=== PATIENT | male | born 1995 | race African-American/Black ===

== ENCOUNTER → 2017-11-17 | Emergency (ER) | payer SELFPAY ==
[~2017-11-17] MED LIST: Acetaminophen 325 MG TAB ONE; Lidocaine 1% w/Epinephrine 1:100K 20 ML VIAL ONE; hydrOXYzine Pamoate 25 mg Capsule ONE
[2017-11-17 22:11] LABS: Hemoglobin 14.3 g/dL (14.0-18.0); Mean Corpuscular HGB CONC 34.5 g/dL (32.0-36.0); Mean Corpuscular Hemoglobin 31.9 pg (27.0-31.0); Mean Corpuscular Volume 92.5 fL (78.0-98.0); Mean Platelet Volume 7.9 fL (7.4-10.4); Platelet Count 152 thou/uL (130-400); RBC Distribution Width 11.8 % (11.5-14.5); Red Blood Cell (RBC) Count 4.47 mill/uL (4.70-6.10); White Blood Cell (WBC) Count 5.9 thou/uL (4.8-10.8)
[2017-11-17 22:26] LABS: Eosinophils 2 % (0-10); Lymphocytes 60 % (21-51); MDiff Complete? YES; Monocytes 6 % (0-10); Neutrophil 29 % (42-75); Reactive Lymphocytes 3 % (0-10)
[2017-11-17 22:33] LABS: ALT (SGPT) 11 U/L (8-55); AST (SGOT) 19 U/L (5-34); Acetaminophen Less than 6.0 mcg/mL (10.0-30.0); Albumin 3.9 g/dL (3.5-5.0); Alcohol 40 mg/dL (Less than 10); Alkaline Phosphatase 47 U/L (40-150); Anion Gap 12 mmol/L (10-20); BUN (Urea Nitrogen) 13 mg/dL (8.9-20.6); Bilirubin, Total 0.3 mg/dL (0.2-1.2); Calc. Creatinine Clearance 0 mL/min (70-130); Carbon Dioxide 23 mmol/L (22-29); Chloride 105 mmol/L (98-107); Estimated GFR-MDRD Greater than 90; Globulin 2.5 g/dL (2.4-3.5); Glucose 90 mg/dL (70-105); Potassium 3.7 mmol/L (3.5-5.1); Protein, Total 6.4 g/dL (6.0-8.3); Salicylate Less than 8.0 mg/dL (15.0-30.0); Sodium 136 mmol/L (136-145)
--- NOTE | 2017-11-17 22:33 | RAD ---
RADIOGRAPH RIGHT HAND THREE VIEWS: HISTORY: A 22-year-old male, status post acute traumatic injury to the right hand. FINDINGS: Focal small soft tissue swelling to the dorsal-ulnar side of the fifth MCP joint. Tiny 1 or 2 mm ahsan cific density in that region of soft tissue swelling, only visible on the oblique view. No fracture, dislocation, or any other osseous abnormality. IMPRESSION: 1. No fracture. 2. Questionable tiny foreign body versus artifact on the skin, in the region of acute, traumatic, mi ld soft tissue swelling over the fifth metacarpophalangeal joint. POS: JASMIN
[2017-11-18 01:33] LABS: Bilirubin Negative (Negative); Blood, Urine Negative (Negative); Clarity CLEAR (Clear); Glucose, Urine (Dipstick) Negative (Negative); Leukocyte Negative (Negative); Nitrite Negative (Negative); Protein, Urine (Dipstick) Negative (Neg-Trace); Specific Gravity, Urine 1.015 (1.002-1.036); pH, Urine 6.5 (5.0-9.0)
[2017-11-18 01:43] LABS: Amphetamine Detected (NotDetected); Barbiturates Screen Not Detected (NotDetected); Benzodiazepine Screen Detected (NotDetected); Cocaine Metabolite Screen Not Detected (NotDetected); Medtox Control Line Valid? VALID (VALID); Medtox Reader # READER 4; Methadone Not Detected (NotDetected); Methamphetamine Not Detected (NotDetected); Opiate Screen Not Detected (NotDetected); Oxycodone Screen Not Detected (NotDetected); Phencyclidine (PCP) Not Detected (NotDetected); THC/Cannabinoid Screen Not Detected (NotDetected); Tricyclic Screen Not Detected (NotDetected)
== END ==
LOC: ERS 21:30
DX: S61.411A Laceration without foreign body of right hand, initial encounter (principal); F31.9 Bipolar disorder, unspecified; R45.851 Suicidal ideations; B20 Human immunodeficiency virus [HIV] disease; F17.210 Nicotine dependence, cigarettes, uncomplicated; Z79.899 Other long term (current) drug therapy; W22.8XXA Striking against or struck by other objects, initial encounter
CPT/HCPCS: 12002; 36415; 80053; 80306; 80307; 81003; 85025; J2001; Q0177

== ENCOUNTER 2018-01-21 21:11 | Emergency (ER) | payer OTHER, SELFPAY ==
[~2018-01-21 21:11] MED LIST changes: -Acetaminophen 325 MG TAB ONE; +Iopamidol 370 76% 100 ML VIAL ONE; -Lidocaine 1% w/Epinephrine 1:100K 20 ML VIAL ONE; -hydrOXYzine Pamoate 25 mg Capsule ONE
[2018-01-21] MEDS ORDERED: Adacel (T-DAP) 0.5 ML VIAL ONE (22:06)
--- NOTE | 2018-01-21 22:11 | RAD ---
TWO VIEWS OF THE LEFT FOREARM: 01/21/18 INDICATION: History of punching TV with laceration of the left arm. FINDINGS: There is a laceration involving the volar soft tissues of the left forearm. No acute fracture or subl uxation is evident. IMPRESSION: Laceration of the volar soft tissues of the distal left forearm. No acute osseous abnormality. POS: JORGITO
[2018-01-21] MEDS ORDERED: Lidocaine 1% w/Epinephrine 1:100K 20 ML VIAL ONE (23:06)
--- NOTE | 2018-01-22 | CT ---
CTA OF THE LEFT UPPER EXTREMITY WITH IV CONTRAST AND 3D REFORMATTED IMAGING 01/21/18 INDICATION: History of schizophrenia and bipolar disorder, status post punching of a TV and lacerating the left f orearm. FINDINGS: There is a laceration site overlying the distal dorsal radial aspect of the forearm. This is overlyin g the distal right radial artery. There is no evidence of any hemodynamically significant stenosis, o cclusion or aneurysmal formation of the right radial artery. The radial arch within the hand appears well opacified. The ulnar artery is well opacified through the level of the distal right forearm. The ulnar artery at the level of the right hand is not well seen and is not well opacified. This may be related to being congenitally diminutive. There is some superficial radiopaque densities within the s kin overlying the volar aspect of the distal right forearm likely related to some retained debris wit hin the skin. No acute fracture is evident. IMPRESSION: Laceration involving the dorsal radial aspect of the distal right forearm. This is seen adjacent to t he right radial artery. No hemodynamically significant stenosis, occlusion or aneurysmal formation in volving the right radial artery. The ulnar artery appears slightly diminutive and does not appear to opacify well at the level of the right wrist. This may be due to the ulnar artery being diminutive co ngenitally. POS: JASMIN
[2018-01-22] MEDS ORDERED: Bacitracin Zinc 1 Packet ONE (00:16)
== END 2018-01-22 00:23 | disposition home or self-care (01) ==
LOC: ERS 21:11
DX: S51.812A Laceration without foreign body of left forearm, initial encounter (principal); F31.9 Bipolar disorder, unspecified; F17.210 Nicotine dependence, cigarettes, uncomplicated; F20.9 Schizophrenia, unspecified; B20 Human immunodeficiency virus [HIV] disease; Z79.899 Other long term (current) drug therapy; W25.XXXA Contact with sharp glass, initial encounter
CPT/HCPCS: 12002; 90471; 90715; J2001